=== PATIENT | male | born 1970 ===

== ENCOUNTER 2017-08-30 09:34 | Emergency (ER) | payer OTHER ==
[2017-08-30] MEDS ORDERED: Naproxen 550 mg Tab PO STA (10:16)
[2017-08-30] MEDS ORDERED: Bacitracin 500 Units/gm Oint Foilpak UD TOP ONE (10:17)
[2017-08-30] MEDS ORDERED: Naproxen 550 mg Tab PO ONE (10:36)
--- NOTE | 2017-08-30 10:44 | C.PDOC ---
History Of Present Illness 47 yo male comes to ER for evaluation of right 5th digit pain and swelling, greatest around his nail bed, for the past 5 days. Patient states he saw a wart -like growth and "picked at it" and now noticed that is it red and swollen. He denies trauma, discharge from area, fever. Time Seen by Provider: 08/30/17 09:44 Chief Complaint (Nursing): Abnormal Skin Integrity History Per: Patient History/Exam Limitations: no limitations Onset/Duration Of Symptoms: Days Current Symptoms Are (Timing): Still Present Location Of Injury: Right: Hand (right 5th digit) Quality Of Symptoms: Painful, Swollen. denies: Draining Severity: Mild Additional History Per: Patient Past Medical History Reviewed: Historical Data, Nursing Documentation, Vital Signs Vital Signs: Last Vital Signs Temp 98.2 F 08/30/17 11:03 Pulse 79 08/30/17 11:03 Resp 20 08/30/17 11:03 BP 113/77 08/30/17 11:03 Pulse Ox 98 08/30/17 12:04 - Medical History PMH: No Chronic Diseases Surgical History: No Surg Hx Family History: States: No Known Family Hx - Social History Hx Alcohol Use: No Hx Substance Use: No - Immunization History Hx Tetanus Toxoid Vaccination: Yes Hx Influenza Vaccination: No Hx Pneumococcal Vaccination: No Review Of Systems Constitutional: Negative for: Fever, Chills Skin: Positive for: Other (pain and swelling around nailbed of right 5th digit) . Negative for: Rash Neurological: Negative for: Numbness Physical Exam - Physical Exam Appears: Well, Non-toxic, No Acute Distress Skin: Normal Color, Warm, Dry, Other (see extremity exam ) Head: Normacephalic Eye(s): bilateral: Normal Inspection Oral Mucosa: Moist Neck: Supple Cardiovascular: Rhythm Regular Respiratory: Normal Breath Sounds, No Rales, No Rhonchi, No Wheezing Extremity: Normal ROM, Capillary Refill (< 2 seconds all digits ), No Deformity , Other (right 5th digit medial to nail, there is a wart like growth with surrounding mild swelling and erythema. No paronychia) Pulses: Left Radial: Normal, Right Radial: Normal Neurological/Psych: Oriented x3, Normal Sensation (distal sensations intact on right 5th digit) ED Course And Treatment O2 Sat by Pulse Oximetry: 98 (RA) Pulse Ox Interpretation: Normal Progress Note: Wound cleaned and bacitracin applied; sterile dressing applied by nurse. Patient given Naproxen for pain and started on PO Clindamycin for cellulitis. Patient instructed to follow up with manager of financial reporting within 1 week for further evaluation/removal of the wart. He understands he should return to ED if symptoms worsen. Reevaluation Time: 10:45 Reassessment Condition: Improved Disposition Counseled Patient/Family Regarding: Diagnosis, Need For Followup, Rx Given - Disposition Referrals: [facility] [Outside] Disposition: HOME/ ROUTINE Disposition Time: 10:45 Condition: STABLE Additional Instructions: FOLLOW UP WITH DERMATOLOGY WITHIN 1 WEEK USE MEDICATIONS DIRECTED RETURN TO ER IF SYMPTOMS WORSEN Prescriptions: Clindamycin [Cleocin] 300 mg PO TID #21 cap Naproxen 375 mg PO BID PRN #20 tablet PRN Reason: pain Instructions: Cellulitis (Skin Infection), Adult (DC) Forms: [employer] (Burmese) Print Language: MAURITIAN - Clinical Impression Clinical Impression: Viral wart on finger, Cellulitis, finger - Scribe Statement The provider has reviewed the documentation as recorded by the Fabienneibe (Trudy Torres) Provider Attestation: All medical record entries made by the Fabienneibe were at my direction and personally dictated by me. I have reviewed the chart and agree that the record accurately reflects my personal performance of the history, physical exam, medical decision making, and the department course for this patient. I have also personally directed, reviewed, and agree with the discharge instructions and disposition.
[2017-08-30] MEDS ORDERED: Bacitracin 500 Units/gm Oint Foilpak UD ONE (10:55)
[2017-08-30 11:04] VITALS: BP 113/77; PULSE 79; RESP 20; TEMP 98.2
[2017-08-30 11:54] VITALS: O2SAT 98
== END 2017-08-30 11:03 | disposition home or self-care (01) ==
LOC: C.ER 09:34
DX: B07.9 Viral wart, unspecified (principal); L03.011 Cellulitis of right finger